=== PATIENT | female | born 1995 | race Hispanic/Latino ===

== ENCOUNTER 2025-01-12 14:25 | Emergency (ER) | payer SELFPAY ==
[2025-01-12] MEDS ORDERED: Acetaminophen 500 MG TAB ONE (15:18)
[2025-01-12 15:37] LABS: Glucose, Urine (Dipstick) Normal (Negative); Leukocyte 25 (Negative); Protein, Urine (Dipstick) 15 mg/dl (Neg-Trace); Specific Gravity, Urine 1.020 (1.005-1.030)
[2025-01-12 15:43] LABS: Bacteria/HPF 2+ HPF (None Seen); CAUTI Indications for Culture Pelvic or flank pain; RBC/HPF 0-3 HPF (0-3); WBC/HPF 0-3 HPF (0-3)
[2025-01-12 15:44] LABS: Urine Culture Reflex No No
== END 2025-01-12 16:56 | disposition home or self-care (01) ==
LOC: CSHERS 14:25
DX: O20.9 Hemorrhage in early pregnancy, unspecified (principal); O23.40 Unspecified infection of urinary tract in pregnancy, unspecified trimester; N39.0 Urinary tract infection, site not specified; Z3A.00 Weeks of gestation of pregnancy not specified
CPT/HCPCS: 36415; 81001; 84702; 87086; 99284